=== PATIENT | male | born 1955 | race African-American/Black ===

== ENCOUNTER 2018-09-04 20:13 | Emergency (ER) | payer MEDICAID ==
[~2018-09-04] VITALS: Ht 172.7 cm; Wt 66.4 kg
[2018-09-04] MEDS ORDERED: KETOROLAC 60MG/2ML VIAL IM ONE (20:45)
[2018-09-04 22:35] VITALS: BP 199/103
[2018-09-20] MEDS ORDERED: FOLI0.8T23 PO (23:39)
[2018-09-20] MEDS ORDERED: REN800 PO (23:39)
== END 2018-09-04 22:42 | disposition home or self-care (01) ==
LOC: ER 20:13
DX: S43.401A Unspecified sprain of right shoulder joint, initial encounter (principal); M19.011 Primary osteoarthritis, right shoulder; W22.8XXA Striking against or struck by other objects, initial encounter; Y93.89 Activity, other specified; Y92.89 Other specified places as the place of occurrence of the external cause; F17.210 Nicotine dependence, cigarettes, uncomplicated; F12.90 Cannabis use, unspecified, uncomplicated; N18.6 End stage renal disease; Z99.2 Dependence on renal dialysis
CPT/HCPCS: 73030; 96372; 99284; J1885